=== PATIENT | female | born 1995 | race African-American/Black ===

== ENCOUNTER 2021-05-14 02:00 | Emergency (ER) | payer MEDICAID, OTHER ==
[~2021-05-14] VITALS: Ht 167.6 cm; Wt 65.0 kg
[2021-05-14] MEDS ORDERED: FAMOTIDINE 20MG/2ML VIAL IV STA (03:23)
[2021-05-14] MEDS ORDERED: MAGNESIUM/ALUMINUM HYDROXIDE/SIMETHICONE 30ML UDC PO STA (03:23)
[2021-05-14] MEDS ORDERED: METOCLOPRAMIDE HCL 10MG/2ML VIAL IV STA (03:23)
[2021-05-14] MEDS ORDERED: SODIUM CHLORIDE 0.9% 1,000 ML IV ONE (03:30)
[2021-05-14 03:51] LABS: HEMATOCRIT. 36.3 % (36.0-48.0); HEMOGLOBIN. 11.9 g/dL (12.0-16.0); MEAN CORPUSCULAR HEMOGLOBIN 26.6 pg (28.0-32.0); MEAN CORPUSCULAR VOLUME 81.2 fL (81.0-99.0); MEAN PLATELET VOLUME 9.2 fl (7.4-10.4); PLATELET 291 x1000/uL (130-400); RED BLOOD CELL COUNT 4.47 mill/uL (4.2-5.4)
[2021-05-14 03:53] LABS: CHLORIDE 111 mEq/L (98-107)
[2021-05-14 03:57] LABS: INR 1.1; PROTHROMBIN TIME 11.8 sec (9.6-11.0)
[2021-05-14 03:59] LABS: CLARITY URINE CLEAR (CLEAR); COLOR URINE YELLOW (YELLOW); KETONES URINE 1+ (NEGATIVE); LEUKOCYTE ESTERASE URINE TRACE (NEGATIVE); NITRITE URINE NEGATIVE (NEGATIVE); OCCULT BLOOD URINE 2+ (NEGATIVE); PROTEIN URINE 2+ (NEGATIVE); SPECIFIC GRAVITY URINE 1.038 (1.005-1.030)
[2021-05-14 04:01] LABS: HCG SCREEN NEGATIVE
[2021-05-14] MEDS ORDERED: LORAZEPAM 0.5MG TABLET PO ONE (04:15)
[2021-05-14] MEDS ORDERED: FAMO-135 MT (04:34)
[2021-05-14 04:35] LABS: PLATELET ESTIMATE NORMAL
[2021-05-14 04:58] VITALS: BP 142/75
== END 2021-05-14 05:05 | disposition left against medical advice (07) ==
LOC: ER 02:00
DX: R10.13 Epigastric pain (principal); R11.2 Nausea with vomiting, unspecified; F12.10 Cannabis abuse, uncomplicated
CPT/HCPCS: 36415; 80053; 81003; 83690; 84703; 85025; 85610; 96374; 96375; 99284; J2765; J3490; J7030